=== PATIENT | female | born 1960 | race African-American/Black ===

== ENCOUNTER 2019-01-01 10:37 | Emergency (ER) | payer OTHER ==
[~2019-01-01] VITALS: Ht 175.3 cm; Wt 99.8 kg
[2019-01-01] MEDS ORDERED: Isovue-300 100ml vial INJ PRN (10:45)
--- NOTE | 2019-01-01 11:00 | NUR ---
ED Nurse Note: Pt BIBA from the street due to upper medial abdominal pain with n/v, drug abuse and depression. Pt admitted using Cocaine yesterday. Pain 10/10 nusrat. No vomitting upon arrival. AOx4, VSS nusrat. Will cont to monitor.
[2019-01-01 11:16] LABS: APPEARANCE,URINE CLEAR; BILIRUBIN, URINE NEGATIVE (NEGATIVE); COLOR,URINE PALE YELLOW; GLUCOSE, URINE (UA) 4+ (NEGATIVE); KETONES,URINE 4+ (NEGATIVE); LEUKOCYTE ESTERASE ,URINE 2+ (NEGATIVE); NITRITE,URINE NEGATIVE (NEGATIVE); PH,URINE 5 (4.5-8.0); PROTEIN,URINE 2+ (NEGATIVE); UROBILINOGEN,URINE 1 MG/DL (0.0-1.0)
--- NOTE | 2019-01-01 11:17 | NUR ---
ED Nurse Note: pt sleeping in room with even and regular respirations.
[2019-01-01 11:21] LABS: HEMATOCRIT 48.1 % (37.0-47.0); HEMOGLOBIN 16.6 G/DL (12.0-16.0); MEAN CORPUSCULAR VOLUME 89 FL (80-99); PLATELET COUNT 169 K/UL (150-450); RED BLOOD COUNT 5.41 M/UL (4.20-5.40); RED CELL DISTRIBUTION WIDTH 11.4 % (11.6-14.8); WHITE BLOOD COUNT 12.3 K/UL (4.8-10.8)
[2019-01-01 11:26] LABS: ANION GAP 19 mmol/L (5-15); BLOOD UREA NITROGEN 21 mg/dL (7-18); CALCIUM 9.6 MG/DL (8.5-10.1); CARBON DIOXIDE 24 MMOL/L (21-32); CHLORIDE 89 MMOL/L (98-107); CREATININE 0.9 MG/DL (0.55-1.30); SODIUM 132 MMOL/L (136-145)
[2019-01-01 11:35] LABS: ALANINE AMINOTRANSFERASE 36 U/L (12-78); ALBUMIN 3.1 G/DL (3.4-5.0); ALBUMIN/GLOBULIN RATIO 0.6 (1.0-2.7); ALKALINE PHOSPHATASE 191 U/L (46-116); ASPARTATE AMINO TRANSFERASE 29 U/L (15-37); BILIRUBIN,TOTAL 1.2 MG/DL (0.2-1.0)
[2019-01-01 11:37] LABS: BILIRUBIN,DIRECT 0.4 MG/DL (0.0-0.3)
[2019-01-01] MEDS ORDERED: cefTRIAXone 1 GM in NS 55 ML IVPB ONE (11:45)
[2019-01-01 11:57] LABS: CREATINE KINASE 155 U/L (26-308)
[2019-01-01 12:34] VITALS: BP 169/79
--- NOTE | 2019-01-01 13:05 | Diagnostic Imaging Report ---
Clinical Indication: Abdominal pain and vomiting for 3 days Technique: No oral contrast utilized, per emergency room physician request IV administration nonionic contrast. Venous phase spiral acquisition obtained through the abdomen and pelvis. Multiplanar reconstructions were generated. Total dose length product 952.15 mGycm. CTDIvol(s) 17.25 mGy. Dose reduction achieved using automated exposure control Comparison: none Findings: There is slight indistinctness to the right renal margin, and considerable infiltration of the right perinephric fat. There is also thickening of and fluid within Gerota's fascia. There is heterogeneity of the right renal parenchymal opacification. No hydronephrosis or hydroureter. No definite ureteral calculi demonstrated. The left kidney is unremarkable. Lack of enteric contrast limits assessment of the GI tract. The appendix is normal. There is no evidence of diverticulosis or diverticulitis. There is equivocal mild proximal jejunal wall thickening. No small bowel distention. No free or loculated intraperitoneal gas or fluid other than the right Gerota's fascia abnormality described above. The distal esophagus, stomach, duodenum are unremarkable. The liver, gallbladder, bile ducts, pancreas are unremarkable. Spleen is mildly enlarged. The adrenals are unremarkable. No retroperitoneal or mesenteric mass or adenopathy. No pelvic mass or adenopathy The included lung bases are clear. The bones demonstrate degenerative spondylosis changes. Impression: Findings compatible with acute pyelonephritis of the right kidney Limited assessment of the GI tract, due to lack of enteric contrast administration Equivocal mild proximal jejunal wall thickening, could indicate enteritis changes. Correlate with clinical findings Splenomegaly Incidental finding of mild degenerative spondylosis changes The CT scanner at [facility] is accredited by the [employer] and the scans are performed using protocols designed to limit radiation exposure to as low as reasonably achievable to attain images of sufficient resolution adequate for diagnostic evaluation.
[2019-01-01 13:43] VITALS: BP 152/78
[2019-01-01] MEDS ORDERED: Insulin Human Regular 100units/ml 3ml SUBQ ONE (13:45)
--- NOTE | 2019-01-01 13:59 | Emergency Room Report ---
History of Present Illness General Chief Complaint: Abdominal Pain Source: Patient Present Illness HPI Patient is homeless and abuses cocaine. Patient also has history of psychiatric disorder. Patient presents emergency department today after abusing crack cocaine last night. States that she feels very weak diffuse body pains and is feeling slightly depressed. She's thinking about starting herself. She states that she's not eating or drinking. She states that she has nausea vomiting. No other complaint or noted. Symptoms noted to be severe. Patient does have a history of depression and is not compliant with medications or treatment.No other modifying factors. No other associated signs and symptoms. No other complaints were noted. Allergies: Coded Allergies: No Known Allergies (Unverified , 01/01/19) Patient History Past Medical History: DM Past Surgical History: none Pertinent Family History: none Social History: Reports: smoking, alcohol use, drug use Last Menstrual Period: 10 yrs ago Reviewed Nursing Documentation: PMH: Agreed; PSxH: Agreed Nursing Documentation-PMH Hx Diabetes: Yes Review of Systems All Other Systems: negative except mentioned in HPI Physical Exam Vital Signs Date Time Temp Pulse Resp B/P (MAP) Pulse Ox O2 Delivery O2 Flow Rate FiO2 01/01/19 10:27 97.7 96 18 167/87 98 Room Air Sp02 EP Interpretation: reviewed, normal General Appearance: lethargic Head: atraumatic Eyes: bilateral eye normal inspection ENT: normal ENT inspection, hearing grossly normal, normal voice Neck: normal inspection, full range of motion, supple, no bony tend Respiratory: normal inspection, lungs clear, normal breath sounds, no respiratory distress, no retraction, no wheezing Cardiovascular #1: regular rate, rhythm, no edema Gastrointestinal: normal inspection, normal bowel sounds, non tender, soft, no guarding, no hernia Genitourinary: no CVA tenderness Musculoskeletal: normal inspection, back normal, normal range of motion Neurologic: normal inspection, alert, responsive, speech normal Psychiatric: depressed affect - poor judgment, anxious Skin: normal inspection, normal color, no rash Medical Decision Making Diagnostic Impression: Primary Impression: Pyelonephritis Additional Impressions: Hyperglycemia Drug abuse Depression Poor compliance with medication ER Course Patient presents emergency department today complaining of vomiting and weakness depression drug abuse. Differential diagnoses include gastroenteritis , sepsis, infection, depression, drug abuse, electrolyte abnormality just to name a few.Given the severity of the patient's presentation I felt this is a highly complex patient. This patient required extensive workup. Patient laboratory workup shows an elevated white blood cell count. Urine shows evidence of infection. CT scan abdomen and pelvis shows evidence of right pyelonephritis. Given patient's elevated white count patient was started on IV antibiotics. Patient's urine tox is positive for cocaine. Patient also complaining of feel depressed. Patient's glucose is elevated therefore patient was given subcutaneous insulin. We'll try to admit patient for pyelonephritis hyperglycemia depression. We'll discussed with admitting/transferring physician. Labs Test 01/01/19 11:00 White Blood Count 12.3 K/UL (4.8-10.8) Red Blood Count 5.41 M/UL (4.20-5.40) Hemoglobin 16.6 G/DL (12.0-16.0) Hematocrit 48.1 % (37.0-47.0) Mean Corpuscular Volume 89 FL (80-99) Mean Corpuscular Hemoglobin 30.7 PG (27.0-31.0) Mean Corpuscular Hemoglobin Concent 34.6 G/DL (32.0-36.0) Red Cell Distribution Width 11.4 % (11.6-14.8) Platelet Count 169 K/UL (150-450) Mean Platelet Volume 6.8 FL (6.5-10.1) Neutrophils (%) (Auto) % (45.0-75.0) Lymphocytes (%) (Auto) % (20.0-45.0) Monocytes (%) (Auto) % (1.0-10.0) Eosinophils (%) (Auto) % (0.0-3.0) Basophils (%) (Auto) % (0.0-2.0) Differential Total Cells Counted 100 Neutrophils % (Manual) 89 % (45-75) Lymphocytes % (Manual) 6 % (20-45) Monocytes % (Manual) 5 % (1-10) Eosinophils % (Manual) 0 % (0-3) Basophils % (Manual) 0 % (0-2) Band Neutrophils 0 % (0-8) Platelet Estimate Adequate Platelet Morphology Normal Urine Color Pale yellow Urine Appearance Clear Urine pH 5 (4.5-8.0) Urine Specific Bells 1.020 (1.005-1.035) Urine Protein 2+ (NEGATIVE) Urine Glucose (UA) 4+ (NEGATIVE) Urine Ketones 4+ (NEGATIVE) Urine Blood 5+ (NEGATIVE) Urine Nitrite Negative (NEGATIVE) Urine Bilirubin Negative (NEGATIVE) Urine Urobilinogen 1 MG/DL (0.0-1.0) Urine Leukocyte Esterase 2+ (NEGATIVE) Urine RBC 5-10 /HPF (0 - 2) Urine WBC 15-20 /HPF (0 - 2) Urine Squamous Epithelial Cells Few /LPF (NONE/OCC) Urine Bacteria Few /HPF (NONE) Sodium Level 132 MMOL/L (136-145) Potassium Level 4.0 MMOL/L (3.5-5.1) Chloride Level 89 MMOL/L (98-107) Carbon Dioxide Level 24 MMOL/L (21-32) Anion Gap 19 mmol/L (5-15) Blood Urea Nitrogen 21 mg/dL (7-18) Creatinine 0.9 MG/DL (0.55-1.30) Estimat Glomerular Filtration Rate > 60 mL/min (>60) Glucose Level 376 MG/DL (74-106) Calcium Level 9.6 MG/DL (8.5-10.1) Total Bilirubin 1.2 MG/DL (0.2-1.0) Direct Bilirubin 0.4 MG/DL (0.0-0.3) Aspartate Amino Transf (AST/SGOT) 29 U/L (15-37) Alanine Aminotransferase (ALT/SGPT) 36 U/L (12-78) Alkaline Phosphatase 191 U/L (46-116) Total Creatine Kinase 155 U/L (26-308) Total Protein 8.3 G/DL (6.4-8.2) Albumin 3.1 G/DL (3.4-5.0) Globulin 5.2 g/dL Albumin/Globulin Ratio 0.6 (1.0-2.7) Salicylates Level 5.5 ug/mL (2.8-20) Urine Opiates Screen Negative (NEGATIVE) Acetaminophen Level < 2 MCG/ML (10-30) Urine Barbiturates Screen Negative (NEGATIVE) Phencyclidine (PCP) Screen Negative (NEGATIVE) Urine Amphetamines Screen Negative (NEGATIVE) Urine Benzodiazepines Screen Negative (NEGATIVE) Urine Cocaine Screen Positive (NEGATIVE) Urine Marijuana (THC) Screen Negative (NEGATIVE) Serum Alcohol < 3 mg/dL CT/MRI/US Diagnostic Results CT/MRI/US Diagnostic Results : Imaging Test Ordered: CT abdomen and pelvis Impression Impression: Findings compatible with acute pyelonephritis of the right kidney Limited assessment of the GI tract, due to lack of enteric contrast administration Equivocal mild proximal jejunal wall thickening, could indicate enteritis changes. Correlate with clinical findings Splenomegaly Incidental finding of mild degenerative spondylosis changes Last Vital Signs Date Time Temp Pulse Resp B/P (MAP) Pulse Ox O2 Delivery O2 Flow Rate FiO2 01/01/19 13:43 152/78 01/01/19 12:34 100 21 99 Room Air 01/01/19 10:27 97.7 Condition: Serious Scripts No Active Prescriptions or Reported Meds Referrals: [facility],REFERRING (PCP) Shailesh Almaguer MD Jan 01, 2019 13:59
--- NOTE | 2019-01-01 14:05 | NUR ---
ED Nurse Note: Pt urinated at this time using bedpan, output 80ml.
--- NOTE | 2019-01-01 15:17 | NUR ---
ED Nurse Note: Report given to CHHAYA Lambert at [facility]. Awaiting for transportation.
[2019-01-01 15:19] VITALS: BP 143/74
[2019-01-01 15:23] VITALS: BP 143/74
--- NOTE | 2019-01-01 15:23 | NUR ---
ED Nurse Note: Ambulance personels at bedside for transportation.
== END 2019-01-01 15:40 | disposition short-term general hospital (02) ==
LOC: EMR 13:00
DX: N10 Acute pyelonephritis (principal); F14.10 Cocaine abuse, uncomplicated; E11.65 Type 2 diabetes mellitus with hyperglycemia; F32.9 Major depressive disorder, single episode, unspecified; Z91.14 Patient's other noncompliance with medication regimen; R16.1 Splenomegaly, not elsewhere classified; M47.9 Spondylosis, unspecified
CPT/HCPCS: 36415; 74177; 80053; 80307; 80329; 81003; 82248; 82550; 85007; 85025; 87086; 87181; 96361; 96365; 96372; 96375; 99284; J0696; J1815; J2405; Q9967

== ENCOUNTER 2019-04-16 11:42 | Emergency (ER) | payer OTHER ==
[~2019-04-16] VITALS: Ht 162.6 cm; Wt 65.8 kg
--- NOTE | 2019-04-16 11:45 | NUR ---
ED Nurse Note: PAtient brought in by ambulance RA [id number] due to ETOH abuse. patient was picked up by the side walk close to her addresss. PER [facility], patient called [facility]. [facility] noticed empty bottle of GIN. patient has reported hx of DM and Severe depression patient reports to [facility] that she has not been taking med for 3 days, unknown medication. patient is sleepy, drowsy, eyes closed, not answering any question at this time. MD by the bedside.
[2019-04-16 11:59] VITALS: BP 112/60
--- NOTE | 2019-04-16 12:17 | NUR ---
ED Nurse Note: URINE AND BLOOD SENT TO LAB
[2019-04-16 12:25] LABS: BASOPHILS % (AUTO) 1.2 % (0.0-2.0); EOSINOPHILS % (AUTO) 1.3 % (0.0-3.0); HEMATOCRIT 40.9 % (37.0-47.0); LYMPHOCYTES % (AUTO) 28.3 % (20.0-45.0); MEAN CORPUSCULAR VOLUME 91 FL (80-99); MONOCYTES % (AUTO) 5.7 % (1.0-10.0); NEUTROPHILS % (AUTO) 63.6 % (45.0-75.0); PLATELET COUNT 243 K/UL (150-450); RED BLOOD COUNT 4.49 M/UL (4.20-5.40); RED CELL DISTRIBUTION WIDTH 12.3 % (11.6-14.8); WHITE BLOOD COUNT 9.4 K/UL (4.8-10.8)
[2019-04-16 12:36] LABS: ANION GAP 17 mmol/L (5-15); BLOOD UREA NITROGEN 34 mg/dL (7-18); CALCIUM 9.7 MG/DL (8.5-10.1); CARBON DIOXIDE 22 MMOL/L (21-32); CHLORIDE 97 MMOL/L (98-107); CREATININE 1.1 MG/DL (0.55-1.30); SODIUM 136 MMOL/L (136-145)
[2019-04-16 12:52] LABS: ALANINE AMINOTRANSFERASE 28 U/L (12-78); ALBUMIN 3.9 G/DL (3.4-5.0); ALKALINE PHOSPHATASE 110 U/L (46-116); ASPARTATE AMINO TRANSFERASE 35 U/L (15-37); BILIRUBIN,TOTAL 0.5 MG/DL (0.2-1.0)
[2019-04-16 14:10] VITALS: BP 117/71
--- NOTE | 2019-04-16 15:26 | Emergency Room Report ---
History of Present Illness General Chief Complaint: Alcohol Intoxication Source: EMS (Jagdish Manrique MD) Present Illness HPI 59-year-old female brought in by EMS after increased altered mental status. Patient reportedly had been drinking alcohol heavily. Patient was noted to have some prior psychiatric history. History is markedly limited by patient's mental status and intoxication. (Jagdish Manrique MD) Allergies: Coded Allergies: No Known Allergies (Unverified , 01/01/19) Patient History Past Medical History: see triage record Now: No Reviewed Nursing Documentation: PMH: Agreed; PSxH: Agreed (Jagdish Manrique MD) Nursing Documentation-PMH Hx Diabetes: Yes History Of Psychiatric Problem: Yes - depression (Jagdish Manrique MD) Review of Systems All Other Systems: negative except mentioned in HPI (Jagdish Manrique MD) Physical Exam Vital Signs Date Time Temp Pulse Resp B/P (MAP) Pulse Ox O2 Delivery O2 Flow Rate FiO2 04/16/19 11:38 98.1 100 16 100/60 (73) 96 Room Air Sp02 EP Interpretation: reviewed, normal General Appearance: alert/responsive, no apparent distress, GCS 15, non-toxic Head: atraumatic Eyes: PERRL, lids + conjunctiva normal ENT: hearing intact, no angioedema Neck: supple/symm/no masses, no meningismus Respiratory: effort normal, no wheezing, chest symmetrical Cardiovascular: regular rate, rhythm, no edema Cardiovascular #2: 2+ carotid (R), 2+ carotid (L), 2+ dorsalis pedis (R), 2+ dorsalis pedis (L) Gastrointestinal: non-tender, no mass, non-distended, no rebound/guarding, normal bowel sounds Musculoskeletal: gait & station normal, strength & tone normal, normal ROM, non -tender Neurologic: other - Somnolent. Skin: no rash, well hydrated Lymphatic: normal inspection (Jagdish Manrique MD) Medical Decision Making Diagnostic Impression: Primary Impression: Acute alcoholic intoxication ER Course Patient presented for altered mental status. Differential diagnosis include was not limited to alcohol intoxication, intracranial hemorrhage, medication overdose among others. Because of complexity of patient's case laboratory testing and imaging studies were ordered. Patient letter testing was notable for markedly elevated blood alcohol level. Patient was initially very somnolent. She was noted to have improvement over time. The patient will be discharged when able to ambulate without assistance.Patient was endorsed to Dr. Mejia pending CT imaging. Labs Test 04/16/19 11:54 White Blood Count 9.4 K/UL (4.8-10.8) Red Blood Count 4.49 M/UL (4.20-5.40) Hemoglobin 14.0 G/DL (12.0-16.0) Hematocrit 40.9 % (37.0-47.0) Mean Corpuscular Volume 91 FL (80-99) Mean Corpuscular Hemoglobin 31.2 PG (27.0-31.0) Mean Corpuscular Hemoglobin Concent 34.3 G/DL (32.0-36.0) Red Cell Distribution Width 12.3 % (11.6-14.8) Platelet Count 243 K/UL (150-450) Mean Platelet Volume 5.6 FL (6.5-10.1) Neutrophils (%) (Auto) 63.6 % (45.0-75.0) Lymphocytes (%) (Auto) 28.3 % (20.0-45.0) Monocytes (%) (Auto) 5.7 % (1.0-10.0) Eosinophils (%) (Auto) 1.3 % (0.0-3.0) Basophils (%) (Auto) 1.2 % (0.0-2.0) Urine HCG, Qualitative Negative (NEGATIVE) Sodium Level 136 MMOL/L (136-145) Potassium Level 4.0 MMOL/L (3.5-5.1) Chloride Level 97 MMOL/L (98-107) Carbon Dioxide Level 22 MMOL/L (21-32) Anion Gap 17 mmol/L (5-15) Blood Urea Nitrogen 34 mg/dL (7-18) Creatinine 1.1 MG/DL (0.55-1.30) Estimat Glomerular Filtration Rate > 60 mL/min (>60) Glucose Level 300 MG/DL (74-106) Calcium Level 9.7 MG/DL (8.5-10.1) Total Bilirubin 0.5 MG/DL (0.2-1.0) Aspartate Amino Transf (AST/SGOT) 35 U/L (15-37) Alanine Aminotransferase (ALT/SGPT) 28 U/L (12-78) Alkaline Phosphatase 110 U/L (46-116) Total Protein 7.7 G/DL (6.4-8.2) Albumin 3.9 G/DL (3.4-5.0) Globulin 3.8 g/dL Albumin/Globulin Ratio 1.0 (1.0-2.7) Thyroid Stimulating Hormone (TSH) 0.696 uiU/mL (0.358-3.740) Salicylates Level 3.8 ug/mL (2.8-20) Urine Opiates Screen Negative (NEGATIVE) Acetaminophen Level < 2 MCG/ML (10-30) Urine Barbiturates Screen Negative (NEGATIVE) Phencyclidine (PCP) Screen Negative (NEGATIVE) Urine Amphetamines Screen Negative (NEGATIVE) Urine Benzodiazepines Screen Negative (NEGATIVE) Urine Cocaine Screen Positive (NEGATIVE) Urine Marijuana (THC) Screen Positive (NEGATIVE) Serum Alcohol 190 mg/dL (Jagdish Manrique MD) ER Course Reeval 6:32 PM, patient no acute distress, patient is eating a sandwich, patient is upright, walking stable gait, patient is clinically sober, patient is requesting to speak with social work, counseled patient about alcohol use disorder, patient counseled about drug use, return precautions were discussed, patient should follow-up with PCP VSS (Charles Mejia MD) Last Vital Signs Date Time Temp Pulse Resp B/P (MAP) Pulse Ox O2 Delivery O2 Flow Rate FiO2 04/16/19 14:10 98.1 89 14 117/71 100 Room Air Status: improved (Jagdish Manrique MD) Disposition: HOME, SELF-CARE Condition: Stable Scripts No Active Prescriptions or Reported Meds Referrals: [facility],REFERRING (PCP) Additional Instructions: The patient was provided with discharge instructions, notified to follow-up with a primary care doctor and or specialist in the next 24-48 hours, and to return to the ED if they have worsening of their symptoms. Please note that this report is being documented using [employer] technology. This can lead to erroneous entry secondary to incorrect interpretation by the dictating instrument. Jagdish Manrique MD Apr 16, 2019 15:26 Charles Mejia MD Apr 16, 2019 18:32
--- NOTE | 2019-04-16 16:27 | Diagnostic Imaging Report ---
Indications: Altered mental status Technique: Spiral acquisitions obtained through the brain. Angled axial and coronal 5 x 5 mm slices were reconstructed. Total dose length product 1376.09 mGycm. CTDI vol(s) 70.38 mGy. Dose reduction achieved using automated exposure control Comparison: None. Findings: No acute intracranial hemorrhage or edema. No mass effect nor midline shift. Normal king-white differentiation. Normal size ventricles and extra axial CSF spaces. Visualized orbits are unremarkable. The the lowest cuts demonstrate a polyp or mucous retention cyst in the left maxillary sinus. The calvarium is intact. The mastoids are clear. Impression: Negative for acute intracranial bleed or mass effect Minimal sinus disease The CT scanner at [facility] is accredited by the [employer] and the scans are performed using protocols designed to limit radiation exposure to as low as reasonably achievable to attain images of sufficient resolution adequate for diagnostic evaluation.
--- NOTE | 2019-04-16 17:59 | NUR ---
ED Nurse Note: provided patient with food sandwich and water as patient request Dr Roberto ryan for the patient.
[2019-04-16 18:45] VITALS: BP 117/71
--- NOTE | 2019-04-16 18:46 | NUR ---
ER DISCHARGE NOTE: Patient is cleared to be discharged per ERMMarvel ALVARENGA, pt is aox4, on room air, with stable vital signs. pt was given dc instructions, pt was able to verbalize understanding that she is being discharged from the hospital no indication for admission at thistime. patient instructed to stop drinking and stop using drugs. , pt id band and iv site removed without complications. pt is able to ambulate with steady gait. pt took all of her belongings. Lotion provided as patient requested.
== END 2019-04-16 18:45 | disposition home or self-care (01) ==
LOC: EDBD 11:42 → EDSEX 11:42 → EMR 12:19
DX: F10.129 Alcohol abuse with intoxication, unspecified (principal); F32.9 Major depressive disorder, single episode, unspecified; I10 Essential (primary) hypertension; E11.9 Type 2 diabetes mellitus without complications; Y90.6 Blood alcohol level of 120-199 mg/100 ml
CPT/HCPCS: 36415; 70450; 80053; 80307; 80329; 81025; 84443; 85025; 99284